=== PATIENT | female | born 1990 | race American Indian/Alaskan Native ===

== ENCOUNTER 2017-08-08 13:07 | Inpatient (IN) | payer OTHER ==
[2017-08-08] MEDS ORDERED: ATIVAN ONE (13:14)
[2017-08-08] MEDS ORDERED: GEODON IM ONE ×2 (13:15→13:19)
[2017-08-08] MEDS ORDERED: ATIVAN IM ONE (13:19)
[2017-08-08] MEDS ORDERED: NACL 0.9% 1000 ML 1,000 ML IV ONE ×2 (13:20→15:04)
[2017-08-08 14:13] LABS: Amorphous Crystals,Urine 2+; Bacteria,Urine 1+ /HPF (Negative); Bilirubin,Urine NEG (Negative); Blood,Urine LG (Negative); Color,Urine Yellow (Yellow); HCG Qualitative,Urine Negative (Negative); Mucus,Urine FEW /HPF; Urobilinogen,Urine < 2.0 mg/dL (<2.0)
[2017-08-08 14:15] LABS: Basophils % (Auto) 0.2 % (0.0-1.8); Hemoglobin 9.6 gm/dl (10.1-14.3); Lymphocytes # (Auto) 0.9 K/mm3 (1.2-5.4); Lymphocytes % (Auto) 6.8 % (13.4-35.0); Mean Corpuscular HGB Conc 32 % (30-34); Mean Corpuscular Hemoglobin 29 pg (28-32); Mean Corpuscular Volume 90 fl (79-97); Monocytes # (Auto) 1.1 K/mm3 (0.0-0.8); Platelet Count 278 K/mm3 (140-440); Red Blood Count 3.32 M/mm3 (3.65-5.03); Red Cell Distribution Width 13.1 % (13.2-15.2)
[2017-08-08 14:22] LABS: Amphetamine Screen,Urine PRESUMPTIVE NEGATIVE; Benzodiazepines Screen,Urine PRESUMPTIVE NEGATIVE; Cannabinoid Screen,Urine PRESUMPTIVE NEGATIVE; Cocaine Screen,Urine PRESUMPTIVE NEGATIVE; Opiate Screen,Urine PRESUMPTIVE NEGATIVE
[2017-08-08 14:24] LABS: INR 0.95 (0.87-1.13)
[2017-08-08 14:25] LABS: Partial Thromboplastin Time 24.1 Sec. (24.2-36.6)
[2017-08-08 14:39] LABS: Methadone Screen,Urine PRESUMPTIVE NEGATIVE
[2017-08-08 14:39] LABS: Alanine Aminotransferase 32 units/L (7-56); Albumin 4.4 g/dL (3.9-5); BUN/Creatinine Ratio 17; Blood Urea Nitrogen 17 mg/dL (7-17); Calcium 8.5 mg/dL (8.4-10.2); Hemolysis Index 2
[2017-08-08 14:40] LABS: Bilirubin,Direct < 0.2 mg/dL (0-0.2)
--- NOTE | 2017-08-08 14:52 | Emergency Department Report ---
ED General Adult HPI - General Chief complaint: Altered Mental Status Stated complaint: ALTERED MENTAL STATUS Time Seen by Provider: 08/08/17 13:19 Source: patient Mode of arrival: Wheelchair Limitations: Altered Mental Status - History of Present Illness Initial comments: This is a 27-year-old female that arrived in triage with altered mental status. She arrives with her boyfriend. There is a question as to whether or not she has been using drugs. She is speaking repetitively with a lot of profanity. She can however answer direct questions. She is agitated and uncooperative and requires restraint for medical evaluation. She states that she knows she is at a hospital and can tell me her name. Beyond that she is not voicing any complaints other than underlying a lot of profanity. -: hour(s) Severity scale (0 -10): 0 - Related Data Allergies Allergy/AdvReac Type Severity Reaction Status Date / Time No Known Allergies Allergy Verified 08/08/17 14:58 ED Review of Systems ROS: Stated complaint: ALTERED MENTAL STATUS Other details as noted in HPI Comment: Unobtainable due to pts medical conditions ED Past Medical Hx - Past Medical History Previous Medical History?: No - Surgical History Past Surgical History?: No - Social History Other Social History: Nursing states patient has ID don't know if this is currently active. ED Physical Exam - General Limitations: Altered Mental Status General appearance: other (agitated and uncooperative) - Head Head exam: Present: atraumatic (no apparent injury soft tissue swelling or ecchymosis) - Eye Eye exam: Present: normal appearance, PERRL, EOMI. Absent: scleral icterus - ENT ENT exam: Present: mucous membranes moist - Neck Neck exam: Present: normal inspection. Absent: tenderness, meningismus - Respiratory Respiratory exam: Present: normal lung sounds bilaterally. Absent: respiratory distress - Cardiovascular Cardiovascular Exam: Present: regular rate, normal rhythm. Absent: systolic murmur, diastolic murmur, rubs, gallop - GI/Abdominal GI/Abdominal exam: Present: soft, normal bowel sounds. Absent: distended, tenderness, guarding, rebound, rigid - Extremities Exam Extremities exam: Present: normal inspection, normal capillary refill. Absent: tenderness, pedal edema, calf tenderness - Back Exam Back exam: Present: normal inspection - Neurological Exam Neurological exam: Present: altered, CN II-XII intact (as testable). Absent: motor sensory deficit - Psychiatric Psychiatric exam: Present: agitated, anxious - Skin Skin exam: Present: warm, dry, intact, normal color. Absent: rash ED Course Vital Signs 08/08/17 13:54 Temperature 98.3 F Pulse Rate 122 H Respiratory 16 Rate Blood Pressure 134/78 [Left] O2 Sat by Pulse 100 Oximetry - Reevaluation(s) Reevaluation #1: The patient is presenting consistent with a toxidrome. She has slightly elevated lactic acid. She has rhabdomyolysis. Given her. Antibiotic coverage but I did not find a source infection. A chest x-ray is still pending. I discussed the patient with Dr. Ray who states she is appropriate for admission to telemetry. She is restrained. Therefore I will execute a 1013. She appears to have a medical delirium. 08/08/17 15:05 ED Medical Decision Making - Lab Data Result diagrams: 08/08/17 13:52 08/08/17 13:52 Laboratory Results - last 24 hr 08/08/17 08/08/17 08/08/17 13:52 13:52 13:52 WBC 13.8 H RBC 3.32 L Hgb 9.6 L Hct 30.0 L MCV 90 MCH 29 MCHC 32 RDW 13.1 L Plt Count 278 Lymph % (Auto) 6.8 L [place] % (Auto) 8.0 H Eos % (Auto) 0.0 Baso % (Auto) 0.2 Lymph # 0.9 L [place] # 1.1 H Eos # 0.0 Baso # 0.0 Seg Neutrophils % 85.0 H Seg Neutrophils # 11.7 H PT 13.1 INR 0.95 APTT 24.1 L Sodium 144 Potassium 3.7 Chloride 105.7 Carbon Dioxide 22 Anion Gap 20 BUN 17 Creatinine 1.0 Estimated GFR > 60 BUN/Creatinine Ratio 17 Glucose 100 Lactic Acid Calcium 8.5 Total Bilirubin 0.40 Direct Bilirubin < 0.2 Indirect Bilirubin 0.2 AST 130 H ALT 32 Alkaline Phosphatase 75 Troponin T 0.026 Total Protein 6.9 Albumin 4.4 Albumin/Globulin Ratio 1.8 TSH Urine Color Urine Turbidity Urine pH Ur Specific [place] Urine Protein Urine Glucose (UA) Urine Ketones Urine Blood Urine Nitrite Urine Bilirubin Urine Urobilinogen Ur Leukocyte Esterase Urine WBC (Auto) Urine RBC (Auto) Urine Bacteria (Auto) Amorphous Crystals Urine Mucus Urine HCG, Qual Salicylates Urine Opiates Screen Urine Methadone Screen Acetaminophen Ur Barbiturates Screen Ur Phencyclidine Scrn Ur Amphetamines Screen U Benzodiazepines Scrn Urine Cocaine Screen U Marijuana (THC) Screen Drugs of Abuse Note Plasma/Serum Alcohol 08/08/17 08/08/17 08/08/17 13:52 13:52 13:52 WBC RBC Hgb Hct MCV MCH MCHC RDW Plt Count Lymph % (Auto) [place] % (Auto) Eos % (Auto) Baso % (Auto) Lymph # [place] # Eos # Baso # Seg Neutrophils % Seg Neutrophils # PT INR APTT Sodium Potassium Chloride Carbon Dioxide Anion Gap BUN Creatinine Estimated GFR BUN/Creatinine Ratio Glucose Lactic Acid 2.20 H* Calcium Total Bilirubin Direct Bilirubin Indirect Bilirubin AST ALT Alkaline Phosphatase Troponin T Total Protein Albumin Albumin/Globulin Ratio TSH 1.350 Urine Color Urine Turbidity Urine pH Ur Specific [place] Urine Protein Urine Glucose (UA) Urine Ketones Urine Blood Urine Nitrite Urine Bilirubin Urine Urobilinogen Ur Leukocyte Esterase Urine WBC (Auto) Urine RBC (Auto) Urine Bacteria (Auto) Amorphous Crystals Urine Mucus Urine HCG, Qual Salicylates < 0.3 L Urine Opiates Screen Urine Methadone Screen Acetaminophen Ur Barbiturates Screen Ur Phencyclidine Scrn Ur Amphetamines Screen U Benzodiazepines Scrn Urine Cocaine Screen U Marijuana (THC) Screen Drugs of Abuse Note Plasma/Serum Alcohol 08/08/17 08/08/17 08/08/17 13:52 13:52 13:54 WBC RBC Hgb Hct MCV MCH MCHC RDW Plt Count Lymph % (Auto) [place] % (Auto) Eos % (Auto) Baso % (Auto) Lymph # [place] # Eos # Baso # Seg Neutrophils % Seg Neutrophils # PT INR APTT Sodium Potassium Chloride Carbon Dioxide Anion Gap BUN Creatinine Estimated GFR BUN/Creatinine Ratio Glucose Lactic Acid Calcium Total Bilirubin Direct Bilirubin Indirect Bilirubin AST ALT Alkaline Phosphatase Troponin T Total Protein Albumin Albumin/Globulin Ratio TSH Urine Color Yellow Urine Turbidity Clear Urine pH 5.0 Ur Specific [place] 1.029 Urine Protein 100 mg/dl Urine Glucose (UA) Neg Urine Ketones Tr Urine Blood Lg Urine Nitrite Neg Urine Bilirubin Neg Urine Urobilinogen < 2.0 Ur Leukocyte Esterase Neg Urine WBC (Auto) 3.0 Urine RBC (Auto) 7.0 Urine Bacteria (Auto) 1+ Amorphous Crystals 2+ Urine Mucus Few Urine HCG, Qual Negative Salicylates Urine Opiates Screen Urine Methadone Screen Acetaminophen < 5.0 L Ur Barbiturates Screen Ur Phencyclidine Scrn Ur Amphetamines Screen U Benzodiazepines Scrn Urine Cocaine Screen U Marijuana (THC) Screen Drugs of Abuse Note Plasma/Serum Alcohol < 0.01 08/08/17 13:54 WBC RBC Hgb Hct MCV MCH MCHC RDW Plt Count Lymph % (Auto) [place] % (Auto) Eos % (Auto) Baso % (Auto) Lymph # [place] # Eos # Baso # Seg Neutrophils % Seg Neutrophils # PT INR APTT Sodium Potassium Chloride Carbon Dioxide Anion Gap BUN Creatinine Estimated GFR BUN/Creatinine Ratio Glucose Lactic Acid Calcium Total Bilirubin Direct Bilirubin Indirect Bilirubin AST ALT Alkaline Phosphatase Troponin T Total Protein Albumin Albumin/Globulin Ratio TSH Urine Color Urine Turbidity Urine pH Ur Specific [place] Urine Protein Urine Glucose (UA) Urine Ketones Urine Blood Urine Nitrite Urine Bilirubin Urine Urobilinogen Ur Leukocyte Esterase Urine WBC (Auto) Urine RBC (Auto) Urine Bacteria (Auto) Amorphous Crystals Urine Mucus Urine HCG, Qual Salicylates Urine Opiates Screen Presumptive negative Urine Methadone Screen Presumptive negative Acetaminophen Ur Barbiturates Screen Presumptive negative Ur Phencyclidine Scrn Presumptive negative Ur Amphetamines Screen Presumptive negative U Benzodiazepines Scrn Presumptive negative Urine Cocaine Screen Presumptive negative U Marijuana (THC) Screen Presumptive negative Drugs of Abuse Note Disclamer Plasma/Serum Alcohol Laboratory Results - last 24 hr 08/08/17 08/08/17 08/08/17 13:52 13:52 13:52 WBC 13.8 H RBC 3.32 L Hgb 9.6 L Hct 30.0 L MCV 90 MCH 29 MCHC 32 RDW 13.1 L Plt Count 278 Lymph % (Auto) 6.8 L [place] % (Auto) 8.0 H Eos % (Auto) 0.0 Baso % (Auto) 0.2 Lymph # 0.9 L [place] # 1.1 H Eos # 0.0 Baso # 0.0 Seg Neutrophils % 85.0 H Seg Neutrophils # 11.7 H PT 13.1 INR 0.95 APTT 24.1 L Sodium 144 Potassium 3.7 Chloride 105.7 Carbon Dioxide 22 Anion Gap 20 BUN 17 Creatinine 1.0 Estimated GFR > 60 BUN/Creatinine Ratio 17 Glucose 100 Lactic Acid Calcium 8.5 Total Bilirubin 0.40 Direct Bilirubin < 0.2 Indirect Bilirubin 0.2 AST 130 H ALT 32 Alkaline Phosphatase 75 Total Creatine Kinase 8026 H Troponin T 0.026 Total Protein 6.9 Albumin 4.4 Albumin/Globulin Ratio 1.8 TSH Urine Color Urine Turbidity Urine pH Ur Specific [place] Urine Protein Urine Glucose (UA) Urine Ketones Urine Blood Urine Nitrite Urine Bilirubin Urine Urobilinogen Ur Leukocyte Esterase Urine WBC (Auto) Urine RBC (Auto) Urine Bacteria (Auto) Amorphous Crystals Urine Mucus Urine HCG, Qual Salicylates Urine Opiates Screen Urine Methadone Screen Acetaminophen Ur Barbiturates Screen Ur Phencyclidine Scrn Ur Amphetamines Screen U Benzodiazepines Scrn Urine Cocaine Screen U Marijuana (THC) Screen Drugs of Abuse Note Plasma/Serum Alcohol 08/08/17 08/08/17 08/08/17 13:52 13:52 13:52 WBC RBC Hgb Hct MCV MCH MCHC RDW Plt Count Lymph % (Auto) [place] % (Auto) Eos % (Auto) Baso % (Auto) Lymph # [place] # Eos # Baso # Seg Neutrophils % Seg Neutrophils # PT INR APTT Sodium Potassium Chloride Carbon Dioxide Anion Gap BUN Creatinine Estimated GFR BUN/Creatinine Ratio Glucose Lactic Acid 2.20 H* Calcium Total Bilirubin Direct Bilirubin Indirect Bilirubin AST ALT Alkaline Phosphatase Total Creatine Kinase Troponin T Total Protein Albumin Albumin/Globulin Ratio TSH 1.350 Urine Color Urine Turbidity Urine pH Ur Specific [place] Urine Protein Urine Glucose (UA) Urine Ketones Urine Blood Urine Nitrite Urine Bilirubin Urine Urobilinogen Ur Leukocyte Esterase Urine WBC (Auto) Urine RBC (Auto) Urine Bacteria (Auto) Amorphous Crystals Urine Mucus Urine HCG, Qual Salicylates < 0.3 L Urine Opiates Screen Urine Methadone Screen Acetaminophen Ur Barbiturates Screen Ur Phencyclidine Scrn Ur Amphetamines Screen U Benzodiazepines Scrn Urine Cocaine Screen U Marijuana (THC) Screen Drugs of Abuse Note Plasma/Serum Alcohol 08/08/17 08/08/17 08/08/17 13:52 13:52 13:54 WBC RBC Hgb Hct MCV MCH MCHC RDW Plt Count Lymph % (Auto) [place] % (Auto) Eos % (Auto) Baso % (Auto) Lymph # [place] # Eos # Baso # Seg Neutrophils % Seg Neutrophils # PT INR APTT Sodium Potassium Chloride Carbon Dioxide Anion Gap BUN Creatinine Estimated GFR BUN/Creatinine Ratio Glucose Lactic Acid Calcium Total Bilirubin Direct Bilirubin Indirect Bilirubin AST ALT Alkaline Phosphatase Total Creatine Kinase Troponin T Total Protein Albumin Albumin/Globulin Ratio TSH Urine Color Yellow Urine Turbidity Clear Urine pH 5.0 Ur Specific [place] 1.029 Urine Protein 100 mg/dl Urine Glucose (UA) Neg Urine Ketones Tr Urine Blood Lg Urine Nitrite Neg Urine Bilirubin Neg Urine Urobilinogen < 2.0 Ur Leukocyte Esterase Neg Urine WBC (Auto) 3.0 Urine RBC (Auto) 7.0 Urine Bacteria (Auto) 1+ Amorphous Crystals 2+ Urine Mucus Few Urine HCG, Qual Negative Salicylates Urine Opiates Screen Urine Methadone Screen Acetaminophen < 5.0 L Ur Barbiturates Screen Ur Phencyclidine Scrn Ur Amphetamines Screen U Benzodiazepines Scrn Urine Cocaine Screen U Marijuana (THC) Screen Drugs of Abuse Note Plasma/Serum Alcohol < 0.01 08/08/17 13:54 WBC RBC Hgb Hct MCV MCH MCHC RDW Plt Count Lymph % (Auto) [place] % (Auto) Eos % (Auto) Baso % (Auto) Lymph # [place] # Eos # Baso # Seg Neutrophils % Seg Neutrophils # PT INR APTT Sodium Potassium Chloride Carbon Dioxide Anion Gap BUN Creatinine Estimated GFR BUN/Creatinine Ratio Glucose Lactic Acid Calcium Total Bilirubin Direct Bilirubin Indirect Bilirubin AST ALT Alkaline Phosphatase Total Creatine Kinase Troponin T Total Protein Albumin Albumin/Globulin Ratio TSH Urine Color Urine Turbidity Urine pH Ur Specific [place] Urine Protein Urine Glucose (UA) Urine Ketones Urine Blood Urine Nitrite Urine Bilirubin Urine Urobilinogen Ur Leukocyte Esterase Urine WBC (Auto) Urine RBC (Auto) Urine Bacteria (Auto) Amorphous Crystals Urine Mucus Urine HCG, Qual Salicylates Urine Opiates Screen Presumptive negative Urine Methadone Screen Presumptive negative Acetaminophen Ur Barbiturates Screen Presumptive negative Ur Phencyclidine Scrn Presumptive negative Ur Amphetamines Screen Presumptive negative U Benzodiazepines Scrn Presumptive negative Urine Cocaine Screen Presumptive negative U Marijuana (THC) Screen Presumptive negative Drugs of Abuse Note Disclamer Plasma/Serum Alcohol - EKG Data -: EKG Interpreted by Me EKG shows normal: sinus rhythm, axis, intervals, QRS complexes, ST-T waves Rate: normal - EKG Data Interpretation: no acute changes - Radiology Data Radiology results: report reviewed Critical care attestation.: If time is entered above; I have spent that time in minutes in the direct care of this critically ill patient, excluding procedure time. ED Disposition Clinical Impression: Elevated lactic acid level Altered mental status Qualifiers: Altered mental status type: delirium Qualified Code(s): R41.0 - Disorientation , unspecified Rhabdomyolysis Qualifiers: Rhabdomyolysis type: non-traumatic Qualified Code(s): M62.82 - Rhabdomyolysis Disposition: OP ADMIT IP TO THIS HOSP Is pt being admited?: Yes Does the pt Need Aspirin: Yes Condition: Stable Referrals: PRIMARY CARE, [Primary Care Provider] - 3-5 Days Time of Disposition: 15:07
[2017-08-08] MEDS ORDERED: VANCOMYCIN PHARMACY TO DOSE IV SCH (15:00)
[2017-08-08] MEDS ORDERED: ASPIRIN PR ONE (15:07)
--- NOTE | 2017-08-08 15:29 | Cat Scan Report ---
FINAL REPORT EXAM: CT HEAD/BRAIN WO CON HISTORY: Altered Mental Status TECHNIQUE: CT of the head was performed. No intravenous contrast was administered. PRIORS: None. FINDINGS: There is no evidence of intracranial hemorrhage. There is no edema, mass effect or midline shift. There are no abnormal extra-axial fluid collections. The ventricles are appropriate for brain volume. There is no skull fracture seen. The visualized aspects of the sinuses are clear. IMPRESSION: There is no acute intracranial abnormality identified.
--- NOTE | 2017-08-08 15:53 | History and Physical Report ---
History of Present Illness Date of examination: 08/08/17 Date of admission: 08/08/2017 Chief complaint: Chief complaint: Acute confusion few hours History of present illness: History of Present Illness: 27-year-old -[place] female with no significant past medical history comes in for acute confusion. After mental status. She was talking with a lot of profanities. Agitated and uncooperative. Alert and oriented 4. Patient knows that she is in the hospital and can tell her name. No shortness of breath no fever no chills. No recent travel. Past Medical History Previous Medical History?: No Surgical History Past Surgical History?: No -Social History Other Social History: Nursing states patient has ID don't know if this is currently active. Family history: Hypertension Medications and Allergies Allergies Allergy/AdvReac Type Severity Reaction Status Date / Time No Known Allergies Allergy Verified 08/08/17 14:58 Active Meds: Active Medications Piperacillin Sod/Tazobactam Sod (Zosyn/Ns 4.5gm/100ml) 4.5 gm in 100 mls @ 200 mls/hr IV ONCE.ED ONE Stop: 08/08/17 16:29 Sodium Chloride (Nacl 0.9% 1000 Ml) 1,000 mls @ 999 mls/hr IV BOLUS ONE Stop: 08/08/17 16:04 Vancomycin HCl 1,250 mg/ (Sodium Chloride) 250 mls @ 166.667 mls/hr IV ONCE.ED ONE Stop: 08/08/17 17:29 Vancomycin HCl (Vancomycin/0.45 Ns 1 Gm/250 Ml) 1 gm in 250 mls @ 166.667 mls/ hr IV Q12H DAVID Vancomycin HCl (Vancomycin Pharmacy To Dose) 1 each IV PKCONSULT DAVID; Protocol Review of Systems All systems: negative Constitutional: no weight loss, no weight gain, no fever, no chills, no sweats, no night sweats, no anorexia, no fatigue, no weakness, no malaise, no lethargy, no chronic headaches, no poor appetite, no daytime sleepiness, no chronic pain, no other Ears, nose, mouth and throat: no hoarseness, no sore throat, no swelling in mouth, no swelling in throat, no odynophagia Breasts: deferred Cardiovascular: no chest pain, no orthopnea, no palpitations, no rapid/ irregular heart beat, no edema, no syncope, no lightheadedness, no shortness of breath Respiratory: no cough, no cough with sputum, no excessive sputum, no hemoptysis , no shortness of breath, no dyspnea on exertion Gastrointestinal: no abdominal pain, no nausea, no vomiting, no diarrhea, no constipation, no change in bowel habits, no hematemesis, no coffee ground emesis Genitourinary Female: no dysuria, no urinary frequency, no urgency, no stress incontinence, no post void dribbling, no incomplete emptying, no urge incontinence, no mixed incontinence, no difficulty voiding, no hematuria Menstruation: currently menstrual Rectal: no pain Musculoskeletal: no neck stiffness, no neck pain, no shooting arm pain, no arm numbness/tingling, no low back pain, no shooting leg pain, no leg numbness/ tingling, no redness of joints Integumentary: no rash, no pruritis, no redness, no sores, no wounds, no jaundice, no boils, no blisters Neurological: no seizures, no syncope Psychiatric: anxiety, disorientation, no memory loss, no change in sleep habits , no sleep disturbances, no insomnia, no hypersomnia, no change in appetite, no change in libido, no suicidal ideation, no hallucinations Endocrine: no cold intolerance, no heat intolerance, no polyphagia, no excessive thirst, no polydipsia, no polyuria, no nocturia, no excessive sweating , no flushing, no weight change Hematologic/Lymphatic: no easy bruising, no easy bleeding Allergic/Immunologic: no urticaria, no allergic rhinitis, no wheezing Exam - Constitutional Vitals: Temp Pulse Resp BP Pulse Ox 98.3 F 122 H 16 134/78 100 08/08/17 13:54 08/08/17 13:54 08/08/17 13:54 08/08/17 13:54 08/08/17 13:54 General appearance: Present: no acute distress, well-nourished - EENT Eyes: Present: PERRL ENT: hearing intact, clear oral mucosa - Neck Neck: Present: supple, normal ROM - Respiratory Respiratory effort: normal Respiratory: bilateral: CTA - Cardiovascular Heart rate: 100 Rhythm: regular Heart Sounds: Present: S1 & S2. Absent: rub, click - Extremities Extremities: no ischemia, pulses intact, pulses symmetrical, No edema Peripheral Pulses: within normal limits - Abdominal General gastrointestinal: Present: soft, non-tender, non-distended, normal bowel sounds Female genitourinary: Present: normal - Rectal Rectal Exam: deferred - Integumentary Integumentary: Present: clear, warm, dry - Musculoskeletal Musculoskeletal: gait normal, strength equal bilaterally - Psychiatric Psychiatric: appropriate mood/affect, intact judgment & insight - Neurologic Neurologic: CNII-XII intact, moves all extremities - Allied Health Allied health notes reviewed: nursing, case management Results - Labs CBC & Chem 7: 08/08/17 13:52 08/08/17 13:52 Labs: Laboratory Last Values WBC 13.8 K/mm3 (4.5-11.0) H 08/08/17 13:52 RBC 3.32 M/mm3 (3.65-5.03) L 08/08/17 13:52 Hgb 9.6 gm/dl (10.1-14.3) L 08/08/17 13:52 Hct 30.0 % (30.3-42.9) L 08/08/17 13:52 MCV 90 fl (79-97) 08/08/17 13:52 MCH 29 pg (28-32) 08/08/17 13:52 MCHC 32 % (30-34) 08/08/17 13:52 RDW 13.1 % (13.2-15.2) L 08/08/17 13:52 Plt Count 278 K/mm3 (140-440) 08/08/17 13:52 Lymph % (Auto) 6.8 % (13.4-35.0) L 08/08/17 13:52 [place] % (Auto) 8.0 % (0.0-7.3) H 08/08/17 13:52 Eos % (Auto) 0.0 % (0.0-4.3) 08/08/17 13:52 Baso % (Auto) 0.2 % (0.0-1.8) 08/08/17 13:52 Lymph # 0.9 K/mm3 (1.2-5.4) L 08/08/17 13:52 [place] # 1.1 K/mm3 (0.0-0.8) H 08/08/17 13:52 Eos # 0.0 K/mm3 (0.0-0.4) 08/08/17 13:52 Baso # 0.0 K/mm3 (0.0-0.1) 08/08/17 13:52 Seg Neutrophils % 85.0 % (40.0-70.0) H 08/08/17 13:52 Seg Neutrophils # 11.7 K/mm3 (1.8-7.7) H 08/08/17 13:52 PT 13.1 Sec. (12.2-14.9) 08/08/17 13:52 INR 0.95 (0.87-1.13) 08/08/17 13:52 APTT 24.1 Sec. (24.2-36.6) L 08/08/17 13:52 Sodium 144 mmol/L (137-145) 08/08/17 13:52 Potassium 3.7 mmol/L (3.6-5.0) 08/08/17 13:52 Chloride 105.7 mmol/L (98-107) 08/08/17 13:52 Carbon Dioxide 22 mmol/L (22-30) 08/08/17 13:52 Anion Gap 20 mmol/L 08/08/17 13:52 BUN 17 mg/dL (7-17) 08/08/17 13:52 Creatinine 1.0 mg/dL (0.7-1.2) 08/08/17 13:52 Estimated GFR > 60 ml/min 08/08/17 13:52 BUN/Creatinine Ratio 17 % 08/08/17 13:52 Glucose 100 mg/dL (65-100) 08/08/17 13:52 Lactic Acid 2.20 mmol/L (0.7-2.0) H* 08/08/17 13:52 Calcium 8.5 mg/dL (8.4-10.2) 08/08/17 13:52 Total Bilirubin 0.40 mg/dL (0.1-1.2) 08/08/17 13:52 Direct Bilirubin < 0.2 mg/dL (0-0.2) 08/08/17 13:52 Indirect Bilirubin 0.2 mg/dL 08/08/17 13:52 AST 130 units/L (5-40) H 08/08/17 13:52 ALT 32 units/L (7-56) 08/08/17 13:52 Alkaline Phosphatase 75 units/L (35-129) 08/08/17 13:52 Total Creatine Kinase 8026 units/L (30-135) H 08/08/17 13:52 Troponin T 0.026 ng/mL (0.00-0.029) 08/08/17 13:52 Total Protein 6.9 g/dL (6.3-8.2) 08/08/17 13:52 Albumin 4.4 g/dL (3.9-5) 08/08/17 13:52 Albumin/Globulin Ratio 1.8 % 08/08/17 13:52 TSH 1.350 mlU/mL (0.270-4.200) 08/08/17 13:52 Urine Color Yellow (Yellow) 08/08/17 13:54 Urine Turbidity Clear (Clear) 08/08/17 13:54 Urine pH 5.0 (5.0-7.0) 08/08/17 13:54 Ur Specific [place] 1.029 (1.003-1.030) 08/08/17 13:54 Urine Protein 100 mg/dl mg/dL (Negative) 08/08/17 13:54 Urine Glucose (UA) Neg mg/dL (Negative) 08/08/17 13:54 Urine Ketones Tr mg/dL (Negative) 08/08/17 13:54 Urine Blood Lg (Negative) 08/08/17 13:54 Urine Nitrite Neg (Negative) 08/08/17 13:54 Urine Bilirubin Neg (Negative) 08/08/17 13:54 Urine Urobilinogen < 2.0 mg/dL (<2.0) 08/08/17 13:54 Ur Leukocyte Esterase Neg (Negative) 08/08/17 13:54 Urine WBC (Auto) 3.0 /HPF (0.0-6.0) 08/08/17 13:54 Urine RBC (Auto) 7.0 /HPF (0.0-6.0) 08/08/17 13:54 Urine Bacteria (Auto) 1+ /HPF (Negative) 08/08/17 13:54 Amorphous Crystals 2+ 08/08/17 13:54 Urine Mucus Few /HPF 08/08/17 13:54 Urine HCG, Qual Negative (Negative) 08/08/17 13:54 Salicylates < 0.3 mg/dL (2.8-20.0) L 08/08/17 13:52 Urine Opiates Screen Presumptive negative 08/08/17 13:54 Urine Methadone Screen Presumptive negative 08/08/17 13:54 Acetaminophen < 5.0 ug/mL (10.0-30.0) L 08/08/17 13:52 Ur Barbiturates Screen Presumptive negative 08/08/17 13:54 Ur Phencyclidine Scrn Presumptive negative 08/08/17 13:54 Ur Amphetamines Screen Presumptive negative 08/08/17 13:54 U Benzodiazepines Scrn Presumptive negative 08/08/17 13:54 Urine Cocaine Screen Presumptive negative 08/08/17 13:54 U Marijuana (THC) Screen Presumptive negative 08/08/17 13:54 Drugs of Abuse Note Disclamer 08/08/17 13:54 Plasma/Serum Alcohol < 0.01 % (0-0.07) 08/08/17 13:52 - Imaging and Cardiology EKG: report reviewed (sinus tachycardia heart rate of [address]-T wave changes) Assessment and Plan Advance Directives: Yes (full code) VTE prophylaxis?: Chemical Plan of care discussed with patient/family: Yes - Patient Problems (1) Rhabdomyolysis Current Visit: Yes Status: Acute Qualifiers: Rhabdomyolysis type: non-traumatic Qualified Code(s): M62.82 - Rhabdomyolysis Plan to address problem: Patient has creatinine kinase of around 8000 IV fluids for now (2) Altered mental status Current Visit: Yes Status: Acute Qualifiers: Altered mental status type: delirium Qualified Code(s): R41.0 - Disorientation, unspecified Plan to address problem: Mental health consult (3) Elevated lactic acid level Current Visit: Yes Status: Acute Plan to address problem: Very nonspecific .second set is normal Not in favor of any infection or sepsis. Will give a trial of IV Rocephin. May be discontinued in 24-48 hours after the blood cultures come back (4) DVT prophylaxis Current Visit: Yes Status: Acute Plan to address problem: Heparin subcutaneous
[2017-08-08] MEDS ORDERED: ZOSYN/NS 4.5GM/100ML 4.5 GM/100 ML VIAL IV ONE (16:00)
[2017-08-08] MEDS ORDERED: VANCOMYCIN VIAL 1,250 MG in NACL 0.9% 250ML 250 ML IV ONE (16:00)
--- NOTE | 2017-08-08 16:20 | XRay Report ---
FINAL REPORT EXAM: XR CHEST 1V AP HISTORY: hypertension TECHNIQUE: AP portable view of the chest PRIORS: None. FINDINGS: Lines, tubes, and devices: N/A Lungs and pleura: Trachea is normal in position. Lungs are clear of infiltrate, pleural effusion, vascular congestion, or pneumothorax. Cardiomediastinal silhouette: Cardiac and mediastinal silhouettes are unremarkable. Other: Bony structures are intact. Bilateral nipple bars are in place. IMPRESSION: No acute cardiopulmonary process seen.
[2017-08-08] MEDS ORDERED: SODIUM CHLORIDE FLUSH SYRINGE 10 ML IV PRN (20:53)
[2017-08-08] MEDS ORDERED: PERCOCET 5/325 PO PRN (20:53)
[2017-08-08] MEDS ORDERED: TYLENOL PO PRN (20:53)
[2017-08-08] MEDS ORDERED: MORPHINE IV PRN (20:53)
[2017-08-08] MEDS ORDERED: ZOFRAN IV PRN (20:53)
[2017-08-08] MEDS ORDERED: D5NS 1,000 ML IV SCH (21:00)
[2017-08-08] MEDS ORDERED: PEPCID IV SCH (22:00)
[2017-08-08] MEDS: cefTRIAXone 2 GM in NACL 0.9% 20 ML IV SCH (22:33)
[2017-08-09] MEDS: HEPARIN SUB-Q SCH ×3 (00:54→22:56)
[2017-08-09] MEDS: SODIUM CHLORIDE FLUSH SYRINGE 10 ML IV SCH ×3 (00:54→22:56)
[2017-08-09] MEDS: ZOSYN/NS 4.5GM/100ML 4.5 GM/100 ML VIAL IV SCH ×2 (01:07→08:12)
[2017-08-09] MEDS ORDERED: VANCOMYCIN/0.45 NS 1 GM/250 ML 1 GM/250 ML BAG IV SCH (04:00)
[2017-08-09 05:27] LABS: Basophils % (Auto) 0.4 % (0.0-1.8); Eosinophils # (Auto) 0.1 K/mm3 (0.0-0.4); Eosinophils % (Auto) 0.8 % (0.0-4.3); Hematocrit 31.7 % (30.3-42.9); Hemoglobin 10.1 gm/dl (10.1-14.3); Lymphocytes # (Auto) 1.7 K/mm3 (1.2-5.4); Lymphocytes % (Auto) 16.6 % (13.4-35.0); Mean Corpuscular HGB Conc 32 % (30-34); Mean Corpuscular Hemoglobin 29 pg (28-32); Mean Corpuscular Volume 92 fl (79-97); Monocytes # (Auto) 0.7 K/mm3 (0.0-0.8); Monocytes % (Auto) 6.7 % (0.0-7.3); Platelet Count 286 K/mm3 (140-440); Red Blood Count 3.46 M/mm3 (3.65-5.03); Red Cell Distribution Width 13.4 % (13.2-15.2)
[2017-08-09 05:40] LABS: Alanine Aminotransferase 48 units/L (7-56); BUN/Creatinine Ratio 15; Blood Urea Nitrogen 12 mg/dL (7-17); Calcium 8.1 mg/dL (8.4-10.2); Hemolysis Index 28
[2017-08-09] MEDS: PEPCID PO SCH ×2 (10:13→22:56)
[2017-08-09] MEDS: cefTRIAXone 2 GM in NACL 0.9% 20 ML IV SCH (11:12)
[2017-08-09] MEDS ORDERED: NACL 0.9% 1000 ML 3,000 ML IV SCH (15:00)
--- NOTE | 2017-08-09 15:04 | Progress Note ---
Assessment and Plan Assessment and plan: 27-year-old -[place] female with no significant past medical history presented yesterday to emergency department for the complaints of altered mental status after she was taking "reg". Patient has been going through a stressful condition. Acute toxic encephalopathy secondary to drug use - Resolved, patient was alert and oriented this morning, patient doesn't have any intention to take it again - Psych consult pending Rhabdomyolysis - Creatinine kinase increased from 8000-12,000 - We'll continue with IV fluid 150 mL per hour - Encourage oral intake Lactic acidosis - Likely due to agitation and exertion - I discontinued IV antibiotics, less likely to be infectious DVT prophylaxis Disposition - Possible discharge tomorrow if CK trending down History Interval history: Patient was seen and evaluated this morning, patient was calm and cooperative during the examination. Patient was alert and oriented. Hospitalist Physical - Physical exam Narrative exam: Not in cardiopulmonary distress. The patient appeared well nourished and normally developed. Vital signs as documented. Head exam is unremarkable. No scleral icterus . Neck is without jugular venous distension, thyromegaly, or carotid bruits. Lungs are clear to auscultation. Cardiac exam reveals regular rate and Rhythm. First and second heart sounds normal. No murmurs, rubs or gallops. Abdominal exam reveals normal bowel sounds, no masses, no organomegaly and no aortic enlargement. Extremities are nonedematous and both femoral and pedal pulses are normal. CUSTOMER ASSISTANT: Alert and oriented 3. No focal weakness. - Constitutional Vitals: Temp Pulse Resp BP Pulse Ox 98.5 F 101 H 20 126/70 100 08/09/17 05:00 08/09/17 05:00 08/09/17 05:07 08/09/17 05:00 08/09/17 05:07 General appearance: Present: no acute distress, well-nourished Results - Labs CBC & Chem 7: 08/09/17 05:00 08/09/17 05:00 Labs: Laboratory Last Values WBC 10.2 K/mm3 (4.5-11.0) 08/09/17 05:00 RBC 3.46 M/mm3 (3.65-5.03) L 08/09/17 05:00 Hgb 10.1 gm/dl (10.1-14.3) 08/09/17 05:00 Hct 31.7 % (30.3-42.9) 08/09/17 05:00 MCV 92 fl (79-97) 08/09/17 05:00 MCH 29 pg (28-32) 08/09/17 05:00 MCHC 32 % (30-34) 08/09/17 05:00 RDW 13.4 % (13.2-15.2) 08/09/17 05:00 Plt Count 286 K/mm3 (140-440) 08/09/17 05:00 Lymph % (Auto) 16.6 % (13.4-35.0) 08/09/17 05:00 [place] % (Auto) 6.7 % (0.0-7.3) 08/09/17 05:00 Eos % (Auto) 0.8 % (0.0-4.3) 08/09/17 05:00 Baso % (Auto) 0.4 % (0.0-1.8) 08/09/17 05:00 Lymph # 1.7 K/mm3 (1.2-5.4) 08/09/17 05:00 [place] # 0.7 K/mm3 (0.0-0.8) 08/09/17 05:00 Eos # 0.1 K/mm3 (0.0-0.4) 08/09/17 05:00 Baso # 0.0 K/mm3 (0.0-0.1) 08/09/17 05:00 Seg Neutrophils % 75.5 % (40.0-70.0) H 08/09/17 05:00 Seg Neutrophils # 7.7 K/mm3 (1.8-7.7) 08/09/17 05:00 PT 13.1 Sec. (12.2-14.9) 08/08/17 13:52 INR 0.95 (0.87-1.13) 08/08/17 13:52 APTT 24.1 Sec. (24.2-36.6) L 08/08/17 13:52 Sodium 140 mmol/L (137-145) 08/09/17 05:00 Potassium 3.8 mmol/L (3.6-5.0) 08/09/17 05:00 Chloride 104.1 mmol/L (98-107) 08/09/17 05:00 Carbon Dioxide 19 mmol/L (22-30) L 08/09/17 05:00 Anion Gap 21 mmol/L 08/09/17 05:00 BUN 12 mg/dL (7-17) 08/09/17 05:00 Creatinine 0.8 mg/dL (0.7-1.2) 08/09/17 05:00 Estimated GFR > 60 ml/min 08/09/17 05:00 BUN/Creatinine Ratio 15 % 08/09/17 05:00 Glucose 91 mg/dL (65-100) 08/09/17 05:00 POC Glucose 85 (70-105) 08/08/17 13:21 Lactic Acid 1.90 mmol/L (0.7-2.0) 08/08/17 16:05 Calcium 8.1 mg/dL (8.4-10.2) L 08/09/17 05:00 Total Bilirubin 0.60 mg/dL (0.1-1.2) 08/09/17 05:00 Direct Bilirubin < 0.2 mg/dL (0-0.2) 08/08/17 13:52 Indirect Bilirubin 0.2 mg/dL 08/08/17 13:52 AST 218 units/L (5-40) H 08/09/17 05:00 ALT 48 units/L (7-56) 08/09/17 05:00 Alkaline Phosphatase 77 units/L (35-129) 08/09/17 05:00 Total Creatine Kinase 64716 units/L (30-135) H 08/09/17 10:51 Troponin T 0.026 ng/mL (0.00-0.029) 08/08/17 13:52 Total Protein 6.2 g/dL (6.3-8.2) L 08/09/17 05:00 Albumin 4.0 g/dL (3.9-5) 08/09/17 05:00 Albumin/Globulin Ratio 1.8 % 08/09/17 05:00 TSH 1.350 mlU/mL (0.270-4.200) 08/08/17 13:52 Urine Color Yellow (Yellow) 08/08/17 13:54 Urine Turbidity Clear (Clear) 08/08/17 13:54 Urine pH 5.0 (5.0-7.0) 08/08/17 13:54 Ur Specific [place] 1.029 (1.003-1.030) 08/08/17 13:54 Urine Protein 100 mg/dl mg/dL (Negative) 08/08/17 13:54 Urine Glucose (UA) Neg mg/dL (Negative) 08/08/17 13:54 Urine Ketones Tr mg/dL (Negative) 08/08/17 13:54 Urine Blood Lg (Negative) 08/08/17 13:54 Urine Nitrite Neg (Negative) 08/08/17 13:54 Urine Bilirubin Neg (Negative) 08/08/17 13:54 Urine Urobilinogen < 2.0 mg/dL (<2.0) 08/08/17 13:54 Ur Leukocyte Esterase Neg (Negative) 08/08/17 13:54 Urine WBC (Auto) 3.0 /HPF (0.0-6.0) 08/08/17 13:54 Urine RBC (Auto) 7.0 /HPF (0.0-6.0) 08/08/17 13:54 Urine Bacteria (Auto) 1+ /HPF (Negative) 08/08/17 13:54 Amorphous Crystals 2+ 08/08/17 13:54 Urine Mucus Few /HPF 08/08/17 13:54 Urine HCG, Qual Negative (Negative) 08/08/17 13:54 Salicylates < 0.3 mg/dL (2.8-20.0) L 08/08/17 13:52 Urine Opiates Screen Presumptive negative 08/08/17 13:54 Urine Methadone Screen Presumptive negative 08/08/17 13:54 Acetaminophen < 5.0 ug/mL (10.0-30.0) L 08/08/17 13:52 Ur Barbiturates Screen Presumptive negative 08/08/17 13:54 Ur Phencyclidine Scrn Presumptive negative 08/08/17 13:54 Ur Amphetamines Screen Presumptive negative 08/08/17 13:54 U Benzodiazepines Scrn Presumptive negative 08/08/17 13:54 Urine Cocaine Screen Presumptive negative 08/08/17 13:54 U Marijuana (THC) Screen Presumptive negative 08/08/17 13:54 Drugs of Abuse Note Disclamer 08/08/17 13:54 Plasma/Serum Alcohol < 0.01 % (0-0.07) 08/08/17 13:52
[2017-08-10] MEDS ORDERED: ISOPTO TEARS 0.5% OU ONE (02:14)
[2017-08-10] MEDS: PEPCID PO SCH ×2 (10:58→22:55)
[2017-08-10] MEDS: HEPARIN SUB-Q SCH ×2 (10:58→22:55)
[2017-08-10] MEDS: SODIUM CHLORIDE FLUSH SYRINGE 10 ML IV SCH ×2 (10:59→22:55)
[2017-08-10] MEDS: NACL 0.9% 1000 ML 1,000 ML IV SCH ×2 (10:59→17:59)
--- NOTE | 2017-08-10 14:29 | Progress Note ---
Assessment and Plan - Patient Problems (1) Rhabdomyolysis Current Visit: Yes Status: Acute Qualifiers: Rhabdomyolysis type: non-traumatic Qualified Code(s): M62.82 - Rhabdomyolysis Plan to address problem: Patient has creatinine kinase of around 8000 IV fluids for now CK [id number] to [id number] (2) Altered mental status Current Visit: Yes Status: Resolved Qualifiers: Altered mental status type: delirium Qualified Code(s): R41.0 - Disorientation, unspecified Plan to address problem: Mental health consult AMS resolved 1013 rescinded (3) Elevated lactic acid level Current Visit: Yes Status: Resolved Plan to address problem: Very nonspecific .second set is normal Not in favor of any infection or sepsis. D/c IV Rocephin. Blood cultures negative (4) DVT prophylaxis Current Visit: Yes Status: Acute Plan to address problem: Heparin subcutaneous Subjective Date of service: 08/10/17 Principal diagnosis: Rhabdomyolysis and AMS Interval history: AMS resolved.Feeling well. Objective - Constitutional Vitals: Vital Signs - 12hr 08/10/17 08:20 Temperature 98.7 F Pulse Rate 86 Respiratory 18 Rate Blood Pressure 102/55 [Left] Blood Pressure 102/55 [Right] O2 Sat by Pulse 97 Oximetry General appearance: Present: no acute distress, well-nourished - EENT Eyes: PERRL, EOM intact ENT: hearing intact, clear oral mucosa Ears: bilateral: normal - Neck Neck: supple, normal ROM - Respiratory Respiratory effort: normal Respiratory: bilateral: CTA - Breasts Breasts: normal - Cardiovascular Rhythm: regular Heart Sounds: Present: S1 & S2. Absent: gallop, rub Extremities: pulses intact, No edema, normal color, Full ROM - Gastrointestinal General gastrointestinal: Present: soft, non-tender, non-distended, normal bowel sounds - Genitourinary Female genitourinary: normal - Integumentary Integumentary: clear, warm, dry - Musculoskeletal Musculoskeletal: 1, strength equal bilaterally - Neurologic Neurologic: moves all extremities - Psychiatric Psychiatric: memory intact, appropriate mood/affect, intact judgment & insight - Labs CBC & Chem 7: 08/09/17 05:00 08/09/17 05:00 Labs: Abnormal lab results 08/09/17 08/10/17 Range/Units 22:50 09:53 Total Creatine Kinase 02188 H 9736 H (30-135) units/L
[2017-08-11] MEDS: NACL 0.9% 1000 ML 1,000 ML IV SCH (07:02)
--- NOTE | 2017-08-11 10:07 | Discharge Summary ---
Providers - Providers Date of Admission: 08/08/17 15:44 Date of discharge: 08/11/17 Attending physician: ERICK HARDEN 08/08/17 15:57 Consult to Mental Health [CONS] Routine Reason For Exam: psychosis Place consult to:: an Notified:: Ruben 08/08/17 20:55 Consult to Mental Health [CONS] Routine Reason For Exam: acute psychosis Place consult to:: An Notified:: Ruben Primary care physician: CULTURAL HISTORIAN Hospitalization Condition: Stable Disposition: DC-30 STILL A PATIENT - Discharge Diagnoses (1) Rhabdomyolysis Status: Acute Qualifiers: Rhabdomyolysis type: non-traumatic Qualified Code(s): M62.82 - Rhabdomyolysis (2) Altered mental status Status: Resolved Qualifiers: Altered mental status type: delirium Qualified Code(s): R41.0 - Disorientation, unspecified (3) Elevated lactic acid level Status: Resolved (4) DVT prophylaxis Status: Acute Exam - Constitutional Vitals: Temp Pulse Resp BP Pulse Ox 99.1 F 102 H 18 116/70 98 08/11/17 08:06 08/11/17 08:06 08/11/17 08:06 08/11/17 08:06 08/11/17 08:06 Plan Follow up with: BASIL AGUILAR MD [Primary Care Provider] - 3-5 Days
[2017-08-11] MEDS: HEPARIN SUB-Q SCH (10:38)
[2017-08-11] MEDS: PEPCID PO SCH (10:38)
[2017-08-11] MEDS: SODIUM CHLORIDE FLUSH SYRINGE 10 ML IV SCH (10:40)
[2017-08-11 13:34] VITALS: BP 112/65
== END 2017-08-11 13:50 | disposition home or self-care (01) | DRG 917 ==
LOC: ED 13:07 → INTOOBSV 15:44 → OBSVTOIN 15:44 → 4A 15:44 → 3A 08-09 11:37
PROVIDERS: ADMIT Internal Medicine; ATTEND Internal Medicine
DX: T43.621A Poisoning by amphetamines, accidental (unintentional), initial encounter (principal); G92 Toxic encephalopathy; Y92.9 Unspecified place or not applicable; M62.82 Rhabdomyolysis
CPT/HCPCS: 36415; 70450; 71045; 80048; 80053; 80074; 80307; 80320; 81001; 81025; 82140; 82550; 82962; 84443; 84484; 85025; 85610; 85730; 93005; G0480; J0696; J1644; J2060; J2543; J3370; J3486; J7030; J7050